=== PATIENT | female | born 1960 | race Caucasian/White ===

== ENCOUNTER → 2017-10-31 | Day surgery (SDC) | payer BC, OTHER ==
[~2017-10-31] MED LIST: Lactated Ringers 1,000 ML IV SCH; Propofol 200 MG/20 ML SDV IV ONE
--- NOTE | 2017-10-31 13:03 | OR ---
DATE OF OPERATION: 10/31/2017 PREOPERATIVE DIAGNOSIS: FOLLOW UP POLYPS. POSTOPERATIVE DIAGNOSIS: FOLLOW UP POLYPS. SURGEON: Cameron August MD PROCEDURE: FULL-LENGTH COLONOSCOPY. 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 COMPLICATIONS: None. SPECIMEN: None. FINDINGS: Normal full-length colonoscopy. RECOMMENDATIONS: Follow up colonoscopy in 10 years. INDICATIONS: The patient had a prior colonoscopy with a small tubular adenoma removed. We recommended a 5-year followup. DESCRIPTION OF PROCEDURE: The patient was prepped and draped, placed in left lateral decubitus position. A lubricated Olympus colonoscope was inserted and easily advanced to the cecum. Bowel prep was excellent. We were able to directly visualize ileocecal valve and appendiceal orifice. Upon withdrawal of the scope, throughout the length of the colon, I found no signs of polyps, mass, ulceration, or bleeding sites. No vascular abnormalities or signs of colitis. The rectal vault was benign. Retroflexion of the scope in the rectum showed no anal lesions. Air was suctioned. The scope was removed without complication. CELMENCIA/PUJA /[id number]
== END ==
LOC: CC.SDS 09:12
PROVIDERS: ATTEND Family Medicine
DX: Z12.11 Encounter for screening for malignant neoplasm of colon (principal); I10 Essential (primary) hypertension; F32.9 Major depressive disorder, single episode, unspecified; F41.9 Anxiety disorder, unspecified; Z86.010 Personal history of colon polyps; Z79.82 Long term (current) use of aspirin; Z79.899 Other long term (current) drug therapy
CPT/HCPCS: 45378; J7120; J2704